=== PATIENT | male | born 1985 | race Caucasian/White ===

== ENCOUNTER 2016-10-28 14:33 | Emergency (ER) | payer BC ==
[~2016-10-28] VITALS: Wt 79.0 kg
[~2016-10-28 14:33] MED LIST: AZIT250T94 PO; GUAI120S26 PO; IBUP-1542 PO; LORA10TA3 PO; P EP; PROM6.25 PO
[2016-10-28] MEDS ORDERED: CARB15DR48 LEFT EAR (14:42)
[2016-10-28] MEDS ORDERED: NPH10OT LEFT EAR (14:43)
[2016-10-28] MEDS ORDERED: IBUP-1542 PO (14:43)
--- NOTE | 2016-10-28 14:50 | ERD ---
ER Documentation Chief Complaint Date/Time DATE: 10/28/16 TIME: 14:47 Chief Complaint LEFT EAR PAIN HPI Patient is a 31-year-old male with no past medical history who presents to the ED with left ear pain 1 week. He states that he had cough and congestion last week but denies any symptoms today. He states that he has difficulty hearing in his left ear and states that it is painful, 6 out of 10. Denies drainage. Denies fever or chills. Denies headache, dizziness, neck pain or neck stiffness. Denies abdominal pain, nausea, vomiting or diarrhea. Denies chest pain, cough, shortness of breath or difficulty breathing. Patient states that he has taken Advil for his symptoms which has helped with the pain. No other complaints. ROS All systems reviewed and are negative except as per history of present illness. Medications Home Meds Active Scripts Neomycin/Polymyxin/Hydrocort* (Cortisporin* Otic) 10 Ml Susp, 4 DROP LEFT EAR QID for 7 Days, EA Prov:MARGE DE LA CRUZ PA-C 10/28/16 Ibuprofen* (Motrin*) 600 Mg Tab, 600 MG PO Q6, #30 TAB Prov:MARGE DE LA CRUZ PA-C 10/28/16 Carbamide Peroxide* (Debrox*) 6.5% - 15 Ml Drops, 10 DROP LEFT EAR BID for 7 Days, BOTTLE Prov:MARGE DE LA CRUZ PA-C 10/28/16 Loratadine* (Loratadine*) 10 Mg Tablet, 10 MG PO DAILY, #30 TAB Prov:ZAIRE OROZCO PA-C 12/28/15 Azithromycin* (Zithromax*) 250 Mg Tablet, 250 MG PO .ZPACK DIRECTED, #6 TAB TAKE 500 MG (2 TABS) THE FIRST DAY THEN 250 MG (1 TAB) DAYS 2-5 Prov:ZAIRE OROZCO PA-C 12/28/15 Ibuprofen* (Motrin*) 600 Mg Tab, 600 MG PO Q6, #30 TAB Prov:ZAIRE OROZCO PA-C 12/28/15 Promethazine w/Codeine* (Phenergan w/Codeine* Syrup) 5 Ml Syrup, 5 ML PO QHS Y for COUGH, #120 ML Prov:ZAIRE OROZCO PA-C 12/28/15 Nsxabdnfjff-S-Wuyvandvmd Hb* (Guaifenesin* DM Syrup) 120 Ml Syrup, 10 ML PO Q4H Y for COUGH, #120 ML Prov:ZAIRE OROZCO SCARLET 12/28/15 Reported Medications P-Ephed Hcl/Acetaminophn/Dpha (Tylenol Allergy Complete Cplt) 1 Tab Tablet 10/01/12 Allergies Allergies: Coded Allergies: No Known Allergy (Unverified , 12/28/15) PMhx/Soc History of Surgery: No Anesthesia Reaction: No Hx Neurological Disorder: No Hx Respiratory Disorders: No Hx Cardiac Disorders: No Hx Psychiatric Problems: No Hx Miscellaneous Medical Probl: No Hx Alcohol Use: Yes (6 beers per day) Hx Substance Use: No Hx Tobacco Use: No FmHx Family History: No coronary disease, No diabetes, No other Physical Exam Vitals Vital Signs Date Time Temp Pulse Resp B/P Pulse Ox O2 Delivery O2 Flow Rate FiO2 10/28/16 14:35 98.2 83 18 131/80 100 Physical Exam GENERAL: Well-developed, well-nourished male. Appears in no acute distress. HEAD: Normocephalic, atraumatic. EYES: Pupils are equally reactive bilaterally. EOMs grossly intact. No conjunctival erythema. ENT: Moist mucous membranes. No uvula deviation. No kissing tonsils. No exudates. Left TM is not visualized. Full coverage with cerumen. Mild tragus tenderness with no pinna tenderness. No mastoid tenderness. NECK: Supple. No lymphadenopathy or thyromegaly. No meningismus. negative kernig. negative brudinski. LUNG: Clear to auscultation bilaterally. No rhonchi, wheezing, rales or coarse breath sounds. HEART: Regular rate and rhythm. No murmurs, rubs or gallops. Extremities: Equal pulses bilaterally. No peripheral clubbing, cyanosis or edema. No unilateral leg swelling. NEUROLOGIC: Alert and oriented. Moving all four extremities. 5/5 strength in all extremities. Normal speech. Steady gait. SKIN: Normal color. Warm and dry. No rashes or lesions. Capillary refill < 2 seconds Procedures/MDM ER COURSE: I kept the patient and/or family informed of laboratory and diagnostic imaging results throughout the emergency room course. MEDICAL DECISION MAKING: This is a 31-year-old male with no past medical history who presents with left ear pain 1 week. Vital signs were reviewed. Patient is afebrile. Patient is not hypoxic. Patient is not toxic or ill-appearing. Patient likely has cerumen impaction of the left ear. I offered patient a ear lavage here in the ED however patient refused and wanted drops for home. I am unable to visualize the left TM but due to patient's pain with tragus movement I will be giving the patient Ciprodex drops prophylactically. Low suspicion for otitis externa, malignant otitis externa, TM perforation, mastoiditis, acute otitis media. I did expand to patient that he can come in for an ear lavage if the Debrox does not help. I also advised patient to not use Q-tips. DISCHARGE: At this time, patient is stable for discharge and outpatient management with no new complaints during the ER course. Patient was sent home with Debrox, Ciprodex , Motrin. Patient will be discharged home with instructions to recheck for new or worsening symptoms such as fever, nausea, weakness, LOC and to follow up with primary care in the next 1-2 days. Patient was advised to return to the ER for any new or worsening symptoms. Plan was discussed and patient and/or family understands and agrees. Home instructions were given. Departure Diagnosis: Primary Impression: Cerumen impaction Laterality: left Qualified Code: H61.22 - Impacted cerumen of left ear Condition: Stable Patient Instructions: Cerumen Impaction, Home Care Additional Instructions: Call your primary care doctor TOMORROW for an appointment during the next 1-2 days.See the doctor sooner or return here if your condition worsens before your appointment time. MARGE DE LA CRUZ PA-C October 28, 2016 14:50
== END 2016-10-28 14:43 | disposition home or self-care (01) ==
LOC: EEVIPCON 14:33 → FTE 14:33 → E/R 14:43
DX: H61.22 Impacted cerumen, left ear (principal)
CPT/HCPCS: 99283

== ENCOUNTER 2017-07-13 12:13 | Emergency (ER) | END 2017-07-13 16:50 | disposition home or self-care (01) ==

== ENCOUNTER 2018-12-29 09:45 | Emergency (ER) | payer BC ==
[~2018-12-29] VITALS: Ht 172.7 cm; Wt 79.1 kg
[~2018-12-29 09:45] MED LIST changes: +AZIT250T PO; -AZIT250T94 PO; +CARB15DR50 LEFT EAR; +GUAI120S25 PO; -GUAI120S26 PO; +MECL12.574 PO; +NPH10OT LEFT EAR; +ONDA4TAB14 PO; +POLY10DR19 BOTH EYES
[2018-12-29 09:48] VITALS: BP 157/85; PULSE 87; RESP 18; Ht 172.7 cm; Wt 79.1 kg
[2018-12-29] MEDS ORDERED: ONDANSETRON (ODT) 4 MG TAB ODT STA (10:18)
--- NOTE | 2018-12-29 10:25 | ERD ---
ER Documentation Chief Complaint Chief Complaint bilateral eye redness/discharge x 3 days HPI Patient is a 33-year-old male, no past medical history, presents to the ER for concerns of bilateral eye redness as well as discharge and itching for the last 3 days. Patient states his son has pinkeye. Patient believes he caught his symptoms from his son. Patient denies fevers or chills. Patient denies any blurry vision. Of note, patient denies any contact lens use. Patient denies any foreign body. Of note, on exam, patient is noted to have subconjunctival hemorrhage of the medial aspect of his left eye. Upon further questioning, patient states that he was vomiting 2 days ago after eating Collins[employer]. Patient denies any coughing or excessive sneezing. Patient denies bleeding gums. Patient denies any chest pain or shortness of breath. Patient denies any abdominal pain, fevers, chills or diarrhea. Patient states occasionally still does feel nauseous. ROS All systems reviewed and are negative except as per history of present illness. Medications Home Meds Active Scripts Ondansetron (Ondansetron Odt) 4 Mg Tab.rapdis, 4 MG PO Q6H PRN for NAUSEA AND/OR VOMITING, #10 TAB Prov:JIM ARGUELLO PA-C 12/29/18 Polymyxin B Sulfate-TMP* (Polymyxin B-TMP Eye Drops*) 10 Ml Drops, 1 DROP BOTH EYES QID for 7 Days, EA Prov:JIM ARGUELLO PA-C 12/29/18 Ondansetron (Ondansetron Odt) 4 Mg Tab.rapdis, 4 MG PO Q6H PRN for NAUSEA AND/OR VOMITING, #10 TAB Prov:ZAIRE OROZCO PA-C 07/13/17 Neomycin/Polymyxin/Hydrocort* (Cortisporin* Otic) 10 Ml Susp, 4 DROP LEFT EAR QID for 7 Days, EA Prov:MARGE DE LA CRUZ PA-C 10/28/16 Ibuprofen* (Motrin*) 600 Mg Tab, 600 MG PO Q6, #30 TAB Prov:MARGE DE LA CRUZC 10/28/16 Carbamide Peroxide* (Debrox*) 6.5% - 15 Ml Drops, 10 DROP LEFT EAR BID for 7 Days, BOTTLE Prov:MARGE DE LA CRUZ SCARLET 10/28/16 Loratadine* (Loratadine*) 10 Mg Tablet, 10 MG PO DAILY, #30 TAB Prov:ERNESTOZAIRE Mary NOVAK 12/28/15 Azithromycin* (Zithromax*) 250 Mg Tablet, 250 MG PO .ZPACK DIRECTED, #6 TAB TAKE 500 MG (2 TABS) THE FIRST DAY THEN 250 MG (1 TAB) DAYS 2-5 Prov:ZAIRE OROZCO PA-C 12/28/15 Ibuprofen* (Motrin*) 600 Mg Tab, 600 MG PO Q6, #30 TAB Prov:ZAIRE OROZCO PA-C 12/28/15 Promethazine w/Codeine* (Phenergan w/Codeine* Syrup) 5 Ml Syrup, 5 ML PO QHS PRN for COUGH, #120 ML Prov:ZAIRE OROZCO PA-C 12/28/15 Eqfweqevpgo-K-Hlzioacuhl Hb* (Guaifenesin* DM Syrup) 120 Ml Syrup, 10 ML PO Q4H PRN for COUGH, #120 ML Prov:ZAIRE OROZCO PA-C 12/28/15 Reported Medications P-Ephed Hcl/Acetaminophn/Dpha (Tylenol Allergy Complete Cplt) 1 Tab Tablet 10/01/12 Allergies Allergies: Coded Allergies: No Known Allergy (Unverified , 12/28/15) PMhx/Soc History of Surgery: No Anesthesia Reaction: No Hx Neurological Disorder: No Hx Respiratory Disorders: No Hx Cardiac Disorders: No Hx Psychiatric Problems: No Hx Miscellaneous Medical Probl: No Hx Alcohol Use: Yes (6 beers per day) Hx Substance Use: No Hx Tobacco Use: No FmHx Family History: No diabetes Physical Exam Vitals Vital Signs Date Temp Pulse Resp B/P (MAP) Pulse Ox O2 O2 Flow FiO2 Time Delivery Rate 12/29/18 97.6 87 18 157/85 96 09:48 (109) Physical Exam GENERAL: Well-developed, well-nourished male. Appears in no acute distress. Speaking in full sentences. HEAD: Normocephalic, atraumatic. EYES: Pupils are equally reactive bilaterally. EOMs grossly intact. Mild bi lateral conjunctival erythema noted and yellow discharge noted bilateral canthus. No pain with EOMs. No proptosis. Subconjunctival hemorrhage noted in the left medial aspect. Anterior chambers are clear. ENT: Moist mucous membranes. No uvula deviation. No kissing tonsils. NECK: Supple. No meningismus. Normal range of motion of the neck. LUNG: Clear to auscultation bilaterally. No rhonchi, wheezing, rales or coarse breath sounds. HEART: Regular rate and rhythm. No murmurs, rubs or gallops. EXTREMITIES: Equal pulses bilaterally. No peripheral clubbing, cyanosis or edema. No unilateral leg swelling. NEUROLOGIC: Alert and oriented. Moving all four extremities without any difficulty. Normal speech. Steady gait. SKIN: Normal color. Warm and dry. No rashes or lesions. Procedures/MDM MEDICAL DECISION MAKING: This is a 33-year-old male who presents to the ER for concerns of bilateral eye redness for the last 3 days. Patient states his son has pinkeye is concerned his son may have given him pinkeye as he has itching as well as I discharge. Vital signs were reviewed. Patient was afebrile. On exam, patient does have mild subconjunctival hemorrhage of the left eye. Upon further question patient states he did recently eat Collins[employer] and developed vomiting after. Patient feels as if his forceful vomiting may have caused the symptoms. Patient was given prescription for Zofran for home. Patient will be discharged home with Polytrim eyedrops for concerns of conjunctivitis as well. Differential diagnosis include was not limited to globe rupture, corneal abrasion, corneal ulcer, retained eye foreign body, glaucoma, periorbital cellulitis, orbital cellulitis, hordeolum, dacrocystitis. PRESCRIPTIONS: Polytrim DISCHARGE: At this time, patient is stable for discharge and outpatient management. Supportive measures were discussed with patient including warm/cool compresses. Patient advised not to wear contact lenses or eye makeup. I have instructed the patient to follow-up with his/her primary care physician in 1-2 days. I have discussed with the patient the possibility of needing to see an customer acquisition specialist for further workup if symptoms persist. I have instructed the patient to promptly return to the ER for any new or worsening symptoms including increased pain, fever, swelling, redness, warmth, nausea, vomiting, . The patient and/or family expressed understanding of and agreement with this plan. All questions were answered. Home care instructions were provided. Disclaimer: Inadvertent spelling and grammatical errors are likely due to EHR/dictation software use and do not reflect on the overall quality of patient care. Also, please note that the electronic time recorded on this note does not necessarily reflect the actual time of the patient encounter. Departure Diagnosis: Primary Impression: Conjunctivitis Conjunctivitis type: unspecified Laterality: unspecified laterality Qualified Codes: H10.9 - Unspecified conjunctivitis Additional Impressions: Vomiting Vomiting type: unspecified Vomiting Intractability: unspecified Nausea presence: unspecified Qualified Codes: R11.10 - Vomiting, unspecified Subconjunctival hemorrhage of left eye Condition: Fair Patient Instructions: Conjunctivitis Caused by Infection, Vomiting (7Y-Adult) Referrals: [facility] YOU HAVE RECEIVED A MEDICAL SCREENING EXAM AND THE RESULTS INDICATE THAT YOU DO NOT HAVE A CONDITION THAT REQUIRES URGENT TREATMENT IN THE EMERGENCY DEPARTMENT. FURTHER EVALUATION AND TREATMENT OF YOUR CONDITION CAN WAIT UNTIL YOU ARE SEEN IN YOUR DOCTORS OFFICE WITHIN THE NEXT 1-2 DAYS. IT IS YOUR RESPONSIBILITY TO MAKE AN APPOINTMENT FOR FOLOW-UP CARE. IF YOU HAVE A PRIMARY DOCTOR --you should call your primary doctor and schedule an appointment IF YOU DO NOT HAVE A PRIMARY DOCTOR YOU CAN CALL OUR PHYSICIAN REFERRAL HOTLINE AT IF YOU CAN NOT AFFORD TO SEE A PHYSICIAN YOU CAN CHOSE FROM THE FOLLOWING [facility] [address] [facility]. [facility] [address] [facility]. [facility] [address] [facility]. [facility] [address] [facility] [address] [facility]. [facility]. [address] [facility]. [facility] YOU HAVE RECEIVED A MEDICAL SCREENING EXAM AND THE RESULTS INDICATE THAT YOU DO NOT HAVE A CONDITION THAT REQUIRES URGENT TREATMENT IN THE EMERGENCY DEPARTMENT. FURTHER EVALUATION AND TREATMENT OF YOUR CONDITION CAN WAIT UNTIL YOU ARE SEEN IN YOUR DOCTORS OFFICE WITHIN THE NEXT 1-2 DAYS. IT IS YOUR RESPONSIBILITY TO MAKE AN APPOINTMENT FOR FOLOW-UP CARE. IF YOU HAVE A PRIMARY DOCTOR --you should call your primary doctor and schedule and appointment IF YOU DO NOT HAVE A PRIMARY DOCTOR YOU CAN CALL OUR PHYSICIAN REFERRAL HOTLINE AT . IF YOU CAN NOT AFFORD TO SEE A PHYSICIAN YOU CAN CHOSE FROM THE FOLLOWING [facility] INSTITUTIONS: [facility] [address] [place] [address] [facility] [address] [place] [address] [facility] [address] [place] [address] Additional Instructions: Call your primary care doctor TOMORROW for an appointment during the next 1-2 days.See the doctor sooner or return here if your condition worsens before your appointment time. JIM ARGUELLO PA-C Dec 29, 2018 10:25
== END 2018-12-29 10:48 | disposition home or self-care (01) ==
LOC: FTE 09:45
DX: H11.32 Conjunctival hemorrhage, left eye (principal); R11.10 Vomiting, unspecified
CPT/HCPCS: 99283

== ENCOUNTER 2019-01-02 08:10 | Emergency (ER) | payer BC ==
[~2019-01-02] VITALS: Ht 172.7 cm; Wt 79.0 kg
[2019-01-02 08:15] VITALS: Ht 172.7 cm; Wt 79.0 kg
[2019-01-02] MEDS ORDERED: SOD CHLORIDE 0.9% 1,000 ML IV STA (08:55)
[2019-01-02] MEDS ORDERED: ONDANSETRON 4 MG INJ IV STA (08:55)
[2019-01-02 10:03] VITALS: BP 140/72; PULSE 75; RESP 18
--- NOTE | 2019-01-02 10:04 | ERD ---
ER Documentation Chief Complaint Chief Complaint dizziness, vomitted twice since yesterday HPI 33-year-old male presenting with dizziness and vomiting times yesterday. Patient has mild diarrhea and denies any fevers. No headaches. No abdominal pain. No change in urination or bowel movement. [place] medical problems. NKDA. Surgical history denies. Social history denies ROS All systems reviewed and are negative except as per history of present illness. Medications Home Meds Active Scripts Ondansetron (Ondansetron Odt) 4 Mg Tab.rapdis, 4 MG PO Q6H PRN for NAUSEA AND/OR VOMITING, #10 TAB Prov:TAD ALCOCER PA-C 01/02/19 Meclizine Hcl* (Antivert*) 12.5 Mg Tab, 12.5 MG PO Q6H PRN for DIZZINESS, #20 TAB Prov:TAD ALCOCER PA-C 01/02/19 Ondansetron (Ondansetron Odt) 4 Mg Tab.rapdis, 4 MG PO Q6H PRN for NAUSEA AND/OR VOMITING, #10 TAB Prov:JIM ARGUELLO PA-C 12/29/18 Polymyxin B Sulfate-TMP* (Polymyxin B-TMP Eye Drops*) 10 Ml Drops, 1 DROP BOTH EYES QID for 7 Days, EA Prov:JIM ARGUELLO PA-C 12/29/18 Ondansetron (Ondansetron Odt) 4 Mg Tab.rapdis, 4 MG PO Q6H PRN for NAUSEA AND/OR VOMITING, #10 TAB Prov:ZAIRE OROZCO PA-C 07/13/17 Neomycin/Polymyxin/Hydrocort* (Cortisporin* Otic) 10 Ml Susp, 4 DROP LEFT EAR QID for 7 Days, EA Prov:MARGE DE LA CRUZ PA-C 10/28/16 Ibuprofen* (Motrin*) 600 Mg Tab, 600 MG PO Q6, #30 TAB Prov:MARGE DE LA CRUZ PA-C 10/28/16 Carbamide Peroxide* (Debrox*) 6.5% - 15 Ml Drops, 10 DROP LEFT EAR BID for 7 Days, BOTTLE Prov:MARGE DE LA CRUZ PA-C 10/28/16 Loratadine* (Loratadine*) 10 Mg Tablet, 10 MG PO DAILY, #30 TAB Prov:ZIARE OROZCO SCARLET 12/28/15 Azithromycin* (Zithromax*) 250 Mg Tablet, 250 MG PO .ZPACK DIRECTED, #6 TAB TAKE 500 MG (2 TABS) THE FIRST DAY THEN 250 MG (1 TAB) DAYS 2-5 Prov:ZAIRE OROZCOBryan NOVAK 12/28/15 Ibuprofen* (Motrin*) 600 Mg Tab, 600 MG PO Q6, #30 TAB Prov:ZAIRE OROZCOBryan NOVAK 12/28/15 Promethazine w/Codeine* (Phenergan w/Codeine* Syrup) 5 Ml Syrup, 5 ML PO QHS PRN for COUGH, #120 ML Prov:ZAIRE OROZCO SCARLET 12/28/15 Ochqhgqyeiz-I-Dorydysjyk Hb* (Guaifenesin* DM Syrup) 120 Ml Syrup, 10 ML PO Q4H PRN for COUGH, #120 ML Prov:ZAIRE OROZCO SCARLET 12/28/15 Reported Medications P-Ephed Hcl/Acetaminophn/Dpha (Tylenol Allergy Complete Cplt) 1 Tab Tablet 10/01/12 Allergies Allergies: Coded Allergies: No Known Allergy (Unverified , 12/28/15) PMhx/Soc History of Surgery: No Anesthesia Reaction: No Hx Neurological Disorder: No Hx Respiratory Disorders: No Hx Cardiac Disorders: No Hx Psychiatric Problems: No Hx Miscellaneous Medical Probl: No Hx Alcohol Use: Yes Hx Substance Use: No Hx Tobacco Use: No FmHx Family History: No diabetes, No coronary disease, No other Physical Exam Vitals Vital Signs Date Temp Pulse Resp B/P (MAP) Pulse Ox O2 O2 Flow FiO2 Time Delivery Rate 01/02/19 98.5 76 18 129/71 95 08:15 (90) Physical Exam GENERAL: The patient is well-appearing, well-nourished, in no acute distress CHEST: Clear to auscultation bilaterally. There are no rales, wheezes or rhonchi. HEART: Regular rate and rhythm. No murmurs, clicks, rubs or gallops. No S3 or S4. ABDOMEN:Soft, nontender and nondistended. Good bowel sounds. No rebound or guarding. No gross peritonitis. No gross organomegaly or masses. BACK: No midline or flank tenderness. EXTREMITIES: Equal pulses bilaterally. There is no peripheral clubbing, cyanosis or edema. No focal swelling or erythema. Full range of motion. NEUROLOGIC: Alert and oriented. Cranial nerves II through XII intact. Motor strength in all 4 extremities with 5 out of 5 strength. Sensation grossly intact. Normal speech and gait. Result Diagram: 01/02/1990201/02/1903 Results 24 hrs Laboratory Tests Test 01/02/19 09:03 White Blood Count 6.3 10^3/ul Red Blood Count 4.99 10^6/ul Hemoglobin 16.0 g/dl Hematocrit 46.3 % Mean Corpuscular Volume 92.8 fl Mean Corpuscular Hemoglobin 32.1 pg Mean Corpuscular Hemoglobin Concent 34.6 g/dl Red Cell Distribution Width 11.4 % Platelet Count 277 10^3/UL Mean Platelet Volume 9.4 fl Immature Granulocytes % 0.200 % Neutrophils % 59.6 % Lymphocytes % 27.3 % Monocytes % 11.3 % Eosinophils % 0.8 % Basophils % 0.8 % Nucleated Red Blood Cells % 0.0 /100WBC Immature Granulocytes # 0.010 10^3/ul Neutrophils # 3.8 10^3/ul Lymphocytes # 1.7 10^3/ul Monocytes # 0.7 10^3/ul Eosinophils # 0.1 10^3/ul Basophils # 0.1 10^3/ul Nucleated Red Blood Cells # 0.0 10^3/ul Urine Color YELLOW Urine Clarity CLEAR Urine pH 6.0 Urine Specific [place] 1.016 Urine Ketones NEGATIVE mg/dL Urine Nitrite NEGATIVE mg/dL Urine Bilirubin NEGATIVE mg/dL Urine Urobilinogen NEGATIVE mg/dL Urine Leukocyte Esterase NEGATIVE Alejandro/ul Urine Hemoglobin NEGATIVE mg/dL Urine Glucose NEGATIVE mg/dL Urine Total Protein NEGATIVE mg/dl Sodium Level 141 mmol/L Potassium Level 4.2 mmol/L Chloride Level 105 mmol/L Carbon Dioxide Level 27 mmol/L Anion Gap 9 Blood Urea Nitrogen 8 mg/dl Creatinine 0.98 mg/dl Est Glomerular Filtrat Rate mL/min > 60 mL/min Glucose Level 104 mg/dl Calcium Level 9.9 mg/dl Total Bilirubin 0.9 mg/dl Direct Bilirubin 0.00 mg/dl Indirect Bilirubin 0.9 mg/dl Aspartate Amino Transf (AST/SGOT) 30 IU/L Alanine Aminotransferase (ALT/SGPT) 28 IU/L Alkaline Phosphatase 93 IU/L Total Protein 8.6 g/dl Albumin 4.7 g/dl Globulin 3.90 g/dl Albumin/Globulin Ratio 1.20 Lipase 42 U/L Current Medications Medications Dose Sig/Marek Start Time Status Last (Trade) Ordered Route PRN Stop Time Admin Dose Reason Admin Sodium 1,000 ml @ Q1H STAT 01/02/19 DC 01/02/19 Chloride 1,000 mls/hr IV 08:55 09:07 01/02/19 09:54 Ondansetron 4 mg ONCE STAT 01/02/19 DC 01/02/19 HCl (Zofran IV 08:55 09:06 Inj) 01/02/19 08:56 Procedures/MDM Course: 1 L normal saline given in ED. Zofran given in ED. Blood work was normal in ER. MDM: 33-year-old male presenting with dizziness. Blood work was within normal limits I have low suspicion of intracranial hemorrhage or neuro deficit. I have low suspicion for acute abdominal emergency. Patient is discharged with strict ER precautions and told to follow-up with primary care within 1 to 2 days for close evaluation. Patient is told if symptoms change or worsen to return immediately to the ER. All questions answered at discharge Departure Diagnosis: Primary Impression: Vomiting Additional Impression: Dizziness Condition: Stable Patient Instructions: Dizziness, Unk Cause, Vomiting (7Y-Adult) Referrals: [facility] YOU HAVE RECEIVED A MEDICAL SCREENING EXAM AND THE RESULTS INDICATE THAT YOU DO NOT HAVE A CONDITION THAT REQUIRES URGENT TREATMENT IN THE EMERGENCY DEPARTMENT. FURTHER EVALUATION AND TREATMENT OF YOUR CONDITION CAN WAIT UNTIL YOU ARE SEEN IN YOUR DOCTORS OFFICE WITHIN THE NEXT 1-2 DAYS. IT IS YOUR RESPONSIBILITY TO MAKE AN APPOINTMENT FOR FOLOW-UP CARE. IF YOU HAVE A PRIMARY DOCTOR --you should call your primary doctor and schedule an appointment IF YOU DO NOT HAVE A PRIMARY DOCTOR YOU CAN CALL OUR PHYSICIAN REFERRAL HOTLINE AT IF YOU CAN NOT AFFORD TO SEE A PHYSICIAN YOU CAN CHOSE FROM THE FOLLOWING [facility]ICS [facility] [address] [facility] [address] [facility] [address] [facility] [address] [facility]. [facility] [address] [facility]. [facility] [address] Additional Instructions: FOLLOW UP WITH YOUR PRIMARY CARE PHYSICIAN TOMORROW.Return to this facility if you are not improving as expected. TAD ALCOCER PA-C Jan 02, 2019 10:04
== END 2019-01-02 10:08 | disposition home or self-care (01) ==
LOC: FTE 08:10
DX: R11.10 Vomiting, unspecified (principal); R42 Dizziness and giddiness
CPT/HCPCS: 36415; 80053; 81003; 83690; 85025; 96374; 99284; J2405; J7030